=== PATIENT | female | born 1975 | race Caucasian/White ===

== ENCOUNTER 2016-11-15 12:58 | Emergency (ER) | payer MEDICAID ==
[2016-11-15] MEDS ORDERED: LIDOCAINE 2% VISCOUS SOLN 20 ML UDCUP PO ONE (14:13)
[2016-11-15] MEDS ORDERED: MAG HYDROX/AL HYDROX/SIMETH SUSP 30 ML UDCUP PO ONE (14:13)
[2016-11-15] MEDS ORDERED: METOCLOPRAMIDE HCL ORAL SOLN 10 MG/10 ML UDCUP PO ONE (14:13)
--- NOTE | 2016-11-15 14:15 | ER Document Report ---
ED Medical Screen (RME) - General Chief Complaint: Flank Pain Stated Complaint: BACK PAIN Time Seen by Provider: 11/15/16 14:09 Mode of Arrival: Ambulatory Information source: Patient Notes: This is a 41-year-old female with a history of presents for evaluation of abdominal and flank pain. She states for the last 2 or 3 weeks she has had upper abdominal discomfort which is been postprandial in nature. She states it is particularly exacerbated by sodas or coffee. For the past week she has also had bilateral flank pain. She states that she had seen her primary care physician who wanted to do an ultrasound of her kidneys but she has not been able to get this done yet. She denies any fevers or chills. She has had nausea but no vomiting. She had a normal bowel movement this morning. No dysuria. I have greeted and performed a rapid initial assessment of this patient. A comprehensive ED assessment and evaluation of the patient, analysis of test results and completion of the medical decision making process will be conducted by additional ED providers. TRAVEL OUTSIDE OF THE [place] IN LAST 30 DAYS: No - Related Data Allergies/Adverse Reactions: No Known Allergies Allergy (Verified 11/15/16 14:10) Past Medical History Renal/ Medical History: Denies: Hx Peritoneal Dialysis Physical Exam - Vital signs Vitals: Temp Pulse Resp BP Pulse Ox 98.5 F 94 18 129/83 H 99 11/15/16 13:12 11/15/16 13:12 11/15/16 13:12 11/15/16 13:12 11/15/16 13:12 - General General appearance: Appears well In distress: None - Respiratory Respiratory status: No respiratory distress Breath sounds: Normal. No: Rales, Rhonchi, Wheezing - Cardiovascular Rhythm: Regular Heart sounds: Normal auscultation, S1 appreciated, S2 appreciated Murmur: No Course - Vital Signs Vital signs: Temp Pulse Resp BP Pulse Ox 98.5 F 94 18 129/83 H 99 11/15/16 13:12 11/15/16 13:12 11/15/16 13:12 11/15/16 13:12 11/15/16 13:12
[2016-11-15 14:55] LABS: ABSOLUTE EOSINOPHILS # (AUTO) 0.1 10^3/uL (0.0-0.6); ABSOLUTE MONOCYTES (AUTO) 0.5 10^3/uL (0.1-1.4); ABSOLUTE NEUT (AUTO) 4.2 10^3/uL (1.7-8.2); BASOPHILS % (AUTO) 0.7 % (0-2); EOSINOPHILS % (AUTO) 1.7 % (0-6); HEMATOCRIT 39.3 % (36.0-47.0); HEMOGLOBIN 12.8 g/dL (12.0-15.5); HGB HCT DIFFERENCE -0.9; LYMPHOCYTES % (AUTO) 28.4 % (13-45); MEAN CORPUSCULAR HEMOGLOBIN 28.3 pg (27.0-33.4); MEAN CORPUSCULAR HGB CONC 32.4 g/dL (32.0-36.0); MEAN CORPUSCULAR VOLUME 87 fl (80-97); MONOCYTES % (AUTO) 7.9 % (3-13); RED BLOOD COUNT 4.51 10^6/uL (3.72-5.28); RED CELL DISTRIBUTION WIDTH 13.2 % (11.5-14.0); SEGMENTED NEUTROPHILS % (AUTO) 61.3 % (42-78); WHITE BLOOD COUNT 6.9 10^3/uL (4.0-10.5)
[2016-11-15 15:11] LABS: APPEARANCE,URINE SLIGHTLY-CLOUDY; BILIRUBIN,URINE NEGATIVE (NEGATIVE); GLUCOSE, URINE NEGATIVE (NEGATIVE); KETONES,URINE NEGATIVE (NEGATIVE); LEUKOCYTE ESTERASE,URINE NEGATIVE (NEGATIVE); NITRITE,URINE NEGATIVE (NEGATIVE); PROTEIN,URINE NEGATIVE (NEGATIVE); URINE SPECIFIC GRAVITY 1.011; UROBILINOGEN,URINE NEGATIVE mg/dL (<2.0)
[2016-11-15 15:16] LABS: ALANINE AMINOTRANSFERASE 29 U/L (9-52); ALBUMIN 4.9 g/dL (3.5-5.0); ALKALINE PHOSPHATASE 42 U/L (38-126); ANION GAP 12 (5-19); ASPARTATE AMINO TRANSFERASE 19 U/L (14-36); BILIRUBIN,DIRECT 0.3 mg/dL (0.0-0.4); BILIRUBIN,TOTAL 0.5 mg/dL (0.2-1.3); BLOOD UREA NITROGEN 14 mg/dL (7-20); CALCIUM 9.7 mg/dL (8.4-10.2); CARBON DIOXIDE 28 mmol/L (22-30); CHLORIDE 101 mmol/L (98-107); CREATININE RESULT 0.78 mg/dL (0.52-1.25); GLUCOSE 72 mg/dL (75-110); LIPASE 141.7 U/L (23-300); POTASSIUM 4.1 mmol/L (3.6-5.0); SODIUM 140.7 mmol/L (137-145); TOTAL PROTEIN 8.3 g/dL (6.3-8.2)
--- NOTE | 2016-11-15 16:53 | ER Document Report ---
ED GI/ - General Chief Complaint: Flank Pain Stated Complaint: BACK PAIN Time Seen by Provider: 11/15/16 14:09 Mode of Arrival: Ambulatory Notes: The patient is a 41-year-old female who presents with several weeks of epigastric abdominal pain and right upper quadrant abdominal pain, worse after eating. She has also had dysuria during this time. She saw her primary care physician and is scheduled for an outpatient ultrasound of her kidneys. She is currently not in any pain at this time. She denies fevers, nausea, vomiting, chest pain, shortness of breath, headache, hematuria, vaginal discharge or headache. TRAVEL OUTSIDE OF THE [place] IN LAST 30 DAYS: No - Related Data Allergies/Adverse Reactions: No Known Allergies Allergy (Verified 11/15/16 14:10) Past Medical History - General Information source: Patient - Social History Smoking Status: Never Smoker Chew tobacco use (# tins/day): No Frequency of alcohol use: None Drug Abuse: None Family History: Reviewed & Not Pertinent Patient has suicidal ideation: No Patient has homicidal ideation: No Renal/ Medical History: Denies: Hx Peritoneal Dialysis Review of Systems - Review of Systems Notes: REVIEW OF SYSTEMS: CONSTITUTIONAL: -fevers, -chills EENT: -eye pain, -difficulty swallowing, -nasal congestion CARDIOVASCULAR:-chest pain, -syncope. RESPIRATORY: -cough, -SOB GASTROINTESTINAL: +epigastric abdominal pain, -nausea, -vomiting, -diarrhea GENITOURINARY: +dysuria, -hematuria MUSCULOSKELETAL: +flank pain, -neck pain SKIN: -rash or skin lesions. HEMATOLOGIC: -easy bruising or bleeding. LYMPHATIC: -swollen, enlarged glands. NEUROLOGICAL: -altered mental status or loss of consciousness, -headache, - neurologic symptoms PSYCHIATRIC: -anxiety, -depression. ALL OTHER SYSTEMS REVIEWED AND NEGATIVE. Physical Exam - Vital signs Vitals: Temp Pulse Resp BP Pulse Ox 98.5 F 94 18 129/83 H 99 11/15/16 13:12 11/15/16 13:12 11/15/16 13:12 11/15/16 13:12 11/15/16 13:12 - Notes Notes: PHYSICAL EXAMINATION: GENERAL: Well-appearing, well-nourished and in no acute distress. HEAD: Atraumatic, normocephalic. EYES: Pupils equal round and reactive to light, extraocular movements intact, sclera anicteric, conjunctiva are normal. ENT: nares patent, oropharynx clear without exudates. Moist mucous membranes. NECK: Normal range of motion, supple without lymphadenopathy LUNGS: Breath sounds clear to auscultation bilaterally and equal. No wheezes rales or rhonchi. HEART: Regular rate and rhythm without murmurs ABDOMEN: Soft, mild epigastric tenderness, normoactive bowel sounds. No guarding, no rebound. No masses appreciated. EXTREMITIES: Normal range of motion, no pitting or edema. No cyanosis. NEUROLOGICAL: Cranial nerves grossly intact. Normal speech, normal gait. Normal sensory and motor exams. PSYCH: Normal mood, normal affect. SKIN: Warm, Dry, normal turgor, no rashes or lesions noted. Course - Re-evaluation Re-evalutation: Patient appears well. She has absolutely no abdominal tenderness. Her LFTs, UA other blood work are unremarkable. Instructed her to begin Prilosec for any gastritis symptoms and follow with her primary care physician. No evidence of cholecystitis at this time. - Vital Signs Vital signs: Temp Pulse Resp BP Pulse Ox 97.9 F 85 20 101/57 L 100 11/15/16 17:15 11/15/16 17:15 11/15/16 17:15 11/15/16 17:15 11/15/16 17:15 - Laboratory Result Diagrams: 11/15/16 14:35 11/15/16 14:35 Laboratory results interpreted by me: 11/15/16 14:35 Glucose 72 L Total Protein 8.3 H Discharge - Discharge Clinical Impression: Epigastric abdominal pain, Dysuria Condition: Good Disposition: HOME, SELF-CARE Additional Instructions: Begin the Nexium and AZO for your symptoms. Follow-up with your primary care physician this week to recheck your symptoms. ABDOMINAL PAIN: There are many causes of abdominal pain. Pain can mean a serious problem requiring surgery (such as appendicitis). It can also be an innocent problem that goes away on its own (such as a viral infection). Often, time must pass to determine the cause of pain. The physician does not feel that hospitalization is necessary, at present. Things may change within the next 24 hours. Call the doctor or come back for re- examination if any problems occur, such as: (1) Pain that becomes more severe, steady, or becomes concentrated in one specific area. Also, pain that is more severe with movement or coughing. (2) Vomiting that persists or becomes more frequent. (3) Blood in the vomitus, urine, or bowel movements. Blood in the stool may have a tarry or black appearance. (4) Shaking chills or fever greater than 100 degrees F. (5) The abdomen becomes more distended or swollen. (6) Bowel movements cease. (7) Failure to improve as expected. NORMAL EXAM AND WORKUP: At this time, your examination and workup show no significant abnormality. No significant abnormal physical findings are noted. All laboratory, EKG, and imaging (x-ray, CT scans, ultrasound) studies that were ordered show no significant abnormality. Although your examination and all studies that were ordered showed no significant abnormal finding, there are no examinations and no studies that are 100% accurate. There is always the possibility that some abnormality could exist and not be detected with physical examination or within the limits and capabilities of laboratory and other studies. You should return or follow up as you were instructed on your visit today for further evaluation if your symptoms do not resolve. FOLLOW-UP CARE: If you have been referred to a physician for follow-up care, call the physician s office for an appointment as you were instructed or within the next two days. If you experience worsening or a significant change in your symptoms, notify the physician immediately or return to the Emergency Department at any time for re-evaluation. Gastritis You have an inflammation of the stomach called gastritis. This commonly causes upper abdominal pain, nausea, and vomiting. In severe cases, bleeding of the stomach lining can occur. Gastritis can be caused by bacteria or viruses , alcohol, or stomach-irritating drugs. Begin with sips of clear liquids. Take increasing amounts of fluid over the first 24 hours. Then start small amounts of bland foods (such as dry toast , applesauce, mashed potato). Gradually resume your usual diet. You should take antacids every two hours until the pain has subsided. Acid -suppressing drugs may be prescribed as well. Avoid aspirin, caffeine, tobacco , and alcohol. If the abdominal pain worsens, or there is evidence of major bleeding in the stomach (such as black, tarry stool, bloody or black vomit, or lightheadedness), you should return immediately. Call the doctor if you aren't improved in 24 to 36 hours. Referrals: NATHANAEL GONZALEZ MD [Primary Care Provider] - Follow up as needed
[2016-11-15 17:16] VITALS: BP 101/57
== END 2016-11-15 17:15 | disposition home or self-care (01) ==
LOC: ER 12:58
DX: R10.13 Epigastric pain (principal); R30.0 Dysuria; M54.9 Dorsalgia, unspecified
CPT/HCPCS: 99284; 36415; 83690; 85025; 80053; 81001; J3490 ×3

== ENCOUNTER → 2018-09-11 | Outpatient (CLI) | payer MEDICAID ==
--- NOTE | 2018-09-11 15:04 | WOMENS IMAGING REPORT ---
EXAM DESCRIPTION: BILAT DIAGNOSTIC MAMMO W/CAD; U/S BREAST UNILATERAL, COMPL COMPLETED DATE/TIME: 09/11/2018 12:54 pm; 09/11/2018 1:42 pm REASON FOR STUDY: N63.20 UNSPECIFIED LUMP IN THE LEFT BREAST, UNSPECIFIED QUADRANT; LT BREAST N63.20 N63.20 UNSPECIFIED LUMP IN THE LEFT BREAST, UNSPECIFIED QUAD COMPARISON: 01/19/2016 mammograms and ultrasound TECHNIQUE: Standard craniocaudal and mediolateral oblique views of each breast recorded using digita l acquisition. Additional left breast 90 mediolateral view and cone compression in the CC and MLO orientations. Left breast ultrasound was also performed. LIMITATIONS: None. FINDINGS: RIGHT BREAST MASSES: No suspicious masses. CALCIFICATIONS: No new or suspicious calcifications. ARCHITECTURAL DISTORTION: None. DEVELOPING DENSITY: None. ASYMMETRY: None noted. OTHER: No other significant findings. LEFT BREAST MASSES: In the left breast 12 o'clock position, a low-density well-circumscribed 2.5 cm nodule is pre sent which was subsequently shown at ultrasound to represent a simple breast cyst CALCIFICATIONS: No new or suspicious calcifications. ARCHITECTURAL DISTORTION: None. DEVELOPING DENSITY: None. ASYMMETRY: None noted. OTHER: No other significant finding. Read with the assistance of CAD: .[facility] - R2 Cenova Version 1.3 .[facility] - R2 Cenova Version 2.1 .[facility] - R2 Cenova Version 2.4 .[facility] - R2 Cenova Version 2.4 .[facility] - R2 Awning Finisher Version 9.2 Left breast ultrasound: Ultrasound of the left breast was performed. A 2.5 x 2.5 x 1.7 cm simple cyst is present in the left breast 12 o'clock position, 4 cm from the nipple. IMPRESSION: No mammographic evidence for malignancy right breast No mammographic/sonographic evidence for malignancy left breast. Left breast palpable abnormality 12 o'clock position correlates with 2.5 cm simple cyst BREAST DENSITY: c. The breasts are heterogeneously dense, which may obscure small masses. BIRAD: 2 Benign findings. RECOMMENDATION: RECOMMENDED FOLLOW UP: Please continue yearly bilateral screening mammography/ tomos ynthesis in September 2019. SPECIFIC INTERVENTION/IMAGING/CONSULTATION RECOMMENDED:No additional intervention/ imaging/consultati on needed at this time. COMMUNICATION:The negative/benign results were communicated to the patient. COMMENT: The patient has been notified of the results by letter per MQSA requirements. Additional no tification policies are in place for contacting patient with suspicious or incomplete findings. Quality ID #225: The [employer] recommends an annual screening mammogram for women aged 40 years or over. This facility utilizes a reminder system to ensure that all patients receive reminder letters, and/or direct phone calls for appointments. This includes reminders for routine scr eening mammograms, diagnostic mammograms, or other Breast Imaging Interventions when appropriate. Th is patient will be placed in the appropriate reminder system. The [employer] (ACR) has developed recommendations for screening MRI of the breast s in certain patient populations, to be used in conjunction with mammography. Breast MRI surveillanc e may be appropriate for women with more than 20% lifetime risk of developing breast cancer as deter mined by genetic testing, significant family history of the disease, or history of mantle radiation f or Hodgkins Disease. ACR Practice Guidelines 2008. TECHNICAL DOCUMENTATION: FINDING NUMBER: (1) ASSESSMENT: (1) JOB ID: [id number] [employer]- All Rights Reserved Reading location - IP/workstation name: [email or web address]
--- NOTE | 2018-09-11 15:04 | WOMENS IMAGING REPORT ---
EXAM DESCRIPTION: BILAT DIAGNOSTIC MAMMO W/CAD; U/S BREAST UNILATERAL, COMPL COMPLETED DATE/TIME: 09/11/2018 12:54 pm; 09/11/2018 1:42 pm REASON FOR STUDY: N63.20 UNSPECIFIED LUMP IN THE LEFT BREAST, UNSPECIFIED QUADRANT; LT BREAST N63.20 N63.20 UNSPECIFIED LUMP IN THE LEFT BREAST, UNSPECIFIED QUAD COMPARISON: 01/19/2016 mammograms and ultrasound TECHNIQUE: Standard craniocaudal and mediolateral oblique views of each breast recorded using digita l acquisition. Additional left breast 90 mediolateral view and cone compression in the CC and MLO orientations. Left breast ultrasound was also performed. LIMITATIONS: None. FINDINGS: RIGHT BREAST MASSES: No suspicious masses. CALCIFICATIONS: No new or suspicious calcifications. ARCHITECTURAL DISTORTION: None. DEVELOPING DENSITY: None. ASYMMETRY: None noted. OTHER: No other significant findings. LEFT BREAST MASSES: In the left breast 12 o'clock position, a low-density well-circumscribed 2.5 cm nodule is pre sent which was subsequently shown at ultrasound to represent a simple breast cyst CALCIFICATIONS: No new or suspicious calcifications. ARCHITECTURAL DISTORTION: None. DEVELOPING DENSITY: None. ASYMMETRY: None noted. OTHER: No other significant finding. Read with the assistance of CAD: .[facility] - R2 Cenova Version 1.3 .[facility] - R2 Cenova Version 2.1 .[facility] - R2 Cenova Version 2.4 .[facility] - R2 Cenova Version 2.4 .[facility] - R2 Agricultural Inspector Version 9.2 Left breast ultrasound: Ultrasound of the left breast was performed. A 2.5 x 2.5 x 1.7 cm simple cyst is present in the left breast 12 o'clock position, 4 cm from the nipple. IMPRESSION: No mammographic evidence for malignancy right breast No mammographic/sonographic evidence for malignancy left breast. Left breast palpable abnormality 12 o'clock position correlates with 2.5 cm simple cyst BREAST DENSITY: c. The breasts are heterogeneously dense, which may obscure small masses. BIRAD: 2 Benign findings. RECOMMENDATION: RECOMMENDED FOLLOW UP: Please continue yearly bilateral screening mammography/ tomos ynthesis in September 2019. SPECIFIC INTERVENTION/IMAGING/CONSULTATION RECOMMENDED:No additional intervention/ imaging/consultati on needed at this time. COMMUNICATION:The negative/benign results were communicated to the patient. COMMENT: The patient has been notified of the results by letter per MQSA requirements. Additional no tification policies are in place for contacting patient with suspicious or incomplete findings. Quality ID #225: The [employer] recommends an annual screening mammogram for women aged 40 years or over. This facility utilizes a reminder system to ensure that all patients receive reminder letters, and/or direct phone calls for appointments. This includes reminders for routine scr eening mammograms, diagnostic mammograms, or other Breast Imaging Interventions when appropriate. Th is patient will be placed in the appropriate reminder system. The [employer] (ACR) has developed recommendations for screening MRI of the breast s in certain patient populations, to be used in conjunction with mammography. Breast MRI surveillanc e may be appropriate for women with more than 20% lifetime risk of developing breast cancer as deter mined by genetic testing, significant family history of the disease, or history of mantle radiation f or Hodgkins Disease. ACR Practice Guidelines 2008. TECHNICAL DOCUMENTATION: FINDING NUMBER: (1) ASSESSMENT: (1) JOB ID: [id number] [employer]- All Rights Reserved Reading location - IP/workstation name: [email or web address]
== END ==
LOC: WI 12:47
PROVIDERS: ATTEND Obstetrics & Gynecology
DX: N60.02 Solitary cyst of left breast (principal)
CPT/HCPCS: 76641; 77066

== ENCOUNTER 2019-04-05 11:16 | Emergency (ER) | payer SELFPAY ==
--- NOTE | 2019-04-05 11:53 | ER Document Report ---
ED Medical Screen (RME) - General Chief Complaint: Flank Pain Stated Complaint: FLANK PAIN Time Seen by Provider: 04/05/19 11:50 Primary Care Provider: NATHANAEL GONZALEZ MD [Primary Care Provider] - Follow up as needed Mode of Arrival: Ambulatory Information source: Patient Notes: 44-year-old female presents to ED for bilateral flank pain. She states is been for about 3 months. She states she has been to her doctor he did blood work and urine said there was no infection nothing with the urine. She is told the doctor that when she drinks coffee the kidneys hurt he told her to stop drinking coffee but has not done a x-ray or ultrasound. She stated she really would like a ultrasound of her kidneys. Patient states she has been diagnosed with gastritis but otherwise she is healthy. He is a former smoker quit a couple months ago. She states she used to drink beer but quit drinking beer about 3 weeks ago. And denies any illicit drugs. Patient states she also has been dizzy for for the last week. I have greeted and performed a rapid initial assessment of this patient. A comprehensive ED assessment and evaluation of the patient, analysis of test resu lts and completion of medical decision making process will be conducted by an additional ED providers. TRAVEL OUTSIDE OF THE [place] IN LAST 30 DAYS: No - Related Data Allergies/Adverse Reactions: No Known Allergies Allergy (Verified 11/15/16 14:10) Past Medical History Renal/ Medical History: Denies: Hx Peritoneal Dialysis Physical Exam - Vital signs Vitals: Temp Pulse Resp BP Pulse Ox 98.1 F 89 18 123/79 100 04/05/19 11:20 04/05/19 11:20 04/05/19 11:20 04/05/19 11:20 04/05/19 11:20 Course - Vital Signs Vital signs: Temp Pulse Resp BP Pulse Ox 98.1 F 89 18 123/79 100 04/05/19 11:20 04/05/19 11:20 04/05/19 11:20 04/05/19 11:20 04/05/19 11:20 Doctor's Discharge - Discharge Referrals: NATHANAEL GONZALEZ MD [Primary Care Provider] - Follow up as needed
[2019-04-05 12:26] LABS: ABSOLUTE EOSINOPHILS # (AUTO) 0.1 10^3/uL (0.0-0.6); ABSOLUTE LYMPHOCYTES (AUTO) 1.8 10^3/uL (0.5-4.7); ABSOLUTE MONOCYTES (AUTO) 0.5 10^3/uL (0.1-1.4); ABSOLUTE NEUT (AUTO) 3.2 10^3/uL (1.7-8.2); BASOPHILS % (AUTO) 0.6 % (0-2); EOSINOPHILS % (AUTO) 1.6 % (0-6); HEMATOCRIT 38.9 % (36.0-47.0); HEMOGLOBIN 13.1 g/dL (12.0-15.5); LYMPHOCYTES % (AUTO) 32.6 % (13-45); MEAN CORPUSCULAR HEMOGLOBIN 28.6 pg (27.0-33.4); MEAN CORPUSCULAR HGB CONC 33.8 g/dL (32.0-36.0); MEAN CORPUSCULAR VOLUME 85 fl (80-97); MONOCYTES % (AUTO) 9.2 % (3-13); PLATELET COUNT 271 10^3/uL (150-450); RED BLOOD COUNT 4.59 10^6/uL (3.72-5.28); RED CELL DISTRIBUTION WIDTH 12.9 % (11.5-14.0); TOTAL CELLS COUNTED % (AUTO) 100 %; WHITE BLOOD COUNT 5.7 10^3/uL (4.0-10.5)
[2019-04-05 12:44] LABS: ALKALINE PHOSPHATASE 47 U/L (38-126); ANION GAP 9 (5-19); ASPARTATE AMINO TRANSFERASE 19 U/L (14-36); BILIRUBIN,DIRECT 0.1 mg/dL (0.0-0.4); BILIRUBIN,TOTAL 0.5 mg/dL (0.2-1.3); BLOOD UREA NITROGEN 16 mg/dL (7-20); CALCIUM 9.8 mg/dL (8.4-10.2); CARBON DIOXIDE 29 mmol/L (22-30); CHLORIDE 102 mmol/L (98-107); GLUCOSE 86 mg/dL (75-110); POTASSIUM 3.8 mmol/L (3.6-5.0); TOTAL PROTEIN 8.5 g/dL (6.3-8.2)
--- NOTE | 2019-04-05 13:12 | RADIOLOGY REPORT (SQ) ---
EXAM DESCRIPTION: U/S RETROPERITON (RENAL/AORTA) COMPLETED DATE/TIME: 04/05/2019 12:32 pm REASON FOR STUDY: Bilateral flank pain COMPARISON: None. TECHNIQUE: Dynamic and static grayscale images acquired of the kidneys and bladder and recorded on P ACS. Additional selected color Doppler and spectral images recorded. LIMITATIONS: None. FINDINGS: RIGHT KIDNEY: Normal size. Normal echogenicity. No solid or suspicious masses. No hydronep hrosis. No calcifications. LEFT KIDNEY: Normal size. Normal echogenicity. No solid or suspicious masses. No hydronephrosis. No calcifications. BLADDER: No masses. OTHER FINDINGS: No other significant finding. IMPRESSION: NORMAL RENAL AND BLADDER ULTRASOUND. TECHNICAL DOCUMENTATION: JOB ID: [id number] [facility]- All Rights Reserved Reading location - IP/workstation name: [email or web address]
[2019-04-05 13:29] LABS: APPEARANCE,URINE CLEAR; BILIRUBIN,URINE NEGATIVE (NEGATIVE); COLOR,URINE STRAW; GLUCOSE, URINE NEGATIVE (NEGATIVE); KETONES,URINE NEGATIVE (NEGATIVE); PROTEIN,URINE NEGATIVE (NEGATIVE); URINE SPECIFIC GRAVITY 1.012; UROBILINOGEN,URINE NEGATIVE mg/dL (<2.0)
--- NOTE | 2019-04-05 14:28 | ER Document Report ---
ED GI/ - General Chief Complaint: Flank Pain Stated Complaint: FLANK PAIN Time Seen by Provider: 04/05/19 11:50 Primary Care Provider: NATHANAEL GONZALEZ MD [Primary Care Provider] - Follow up as needed Mode of Arrival: Ambulatory Information source: Patient Notes: Ms. Grady is a 44 yo F w/ PMH gastritis presenting to the ED for ongoing abdominal pain that radiates bilaterally posteriorly to bilateral flanks. Patient states that she had this pain for approximately 3 to 4 months. It is sharp, intermittent in nature and radiates posteriorly. She believes it is her bilateral kidneys causing her pain. She states that she had blood work and urine performed with her primary care doctor. She did not have any imaging performed. Patient also adds that she stopped taking her Zantac approximately 1 year ago. She feels that the pain is worse with eating various things such as fatty foods as well as caffeine products such as soda or chocolate. Her doctor told her to stop caffeine intake. She states she is somewhat chronically constipated and is on daily MiraLAX for it. She denied any dark, black or tarry stools. She states her last BM was yesterday however it was small in nature. Patient denies any urinary frequency or dysuria. No fevers or chills, chest pain, shortness of breath. She denies any vomiting or diarrhea however she endorses intermittent nausea. TRAVEL OUTSIDE OF THE [place] IN LAST 30 DAYS: No - HPI Patient complains to provider of: Abdominal pain, Flank pain, Other - Co nstipation. No: Dysuria, Urinary retention, Vaginal bleeding, Vaginal discharge, Vomiting - Related Data Allergies/Adverse Reactions: No Known Allergies Allergy (Verified 11/15/16 14:10) Home Medications: miralax Past Medical History - General Information source: Patient - Social History Smoking Status: Former Smoker Frequency of alcohol use: Social Family History: Reviewed & Not Pertinent Patient has suicidal ideation: No Patient has homicidal ideation: No - Past Medical History Cardiac Medical History: Reports: Hx Hypercholesterolemia Renal/ Medical History: Denies: Hx Peritoneal Dialysis Past Surgical History: Reports: Hx Hysterectomy Review of Systems - Review of Systems Constitutional: See HPI EENT: No symptoms reported Cardiovascular: No symptoms reported Respiratory: No symptoms reported Gastrointestinal: See HPI Genitourinary: No symptoms reported Female Genitourinary: No symptoms reported Musculoskeletal: No symptoms reported Skin: No symptoms reported Hematologic/Lymphatic: No symptoms reported Neurological/Psychological: No symptoms reported Physical Exam - Vital signs Vitals: Temp Pulse Resp BP Pulse Ox 98.1 F 89 18 123/79 100 04/05/19 11:20 04/05/19 11:20 04/05/19 11:20 04/05/19 11:20 04/05/19 11:20 Interpretation: Normal - General General appearance: Appears well, Alert - HEENT Head: Normocephalic, Atraumatic Eyes: Normal Pupils: PERRL - Respiratory Respiratory status: No respiratory distress Chest status: Nontender Breath sounds: Normal Chest palpation: Normal - Cardiovascular Rhythm: Regular Heart sounds: Normal auscultation Murmur: No - Abdominal Inspection: Normal Distension: No distension Bowel sounds: Normal Tenderness: Nontender Organomegaly: No organomegaly Notes: No CVA tenderness to palpation bilaterally. No rebound or guarding. Abdomen soft and unable to re-create the pain with palpation of bilateral upper abdominal quadrants. - Back Back: Normal, Nontender - Extremities General upper extremity: Normal inspection, Nontender, Normal color, Normal ROM, Normal temperature General lower extremity: Normal inspection, Nontender, Normal color, Normal ROM, Normal temperature, Normal weight bearing. No: Janie's sign - Neurological Neuro grossly intact: Yes Cognition: Normal Orientation: AAOx4 Tomer Coma Scale Eye Opening: Spontaneous [place] Coma Scale Verbal: Oriented Tomer Coma Scale Motor: Obeys Commands Tomer Coma Scale Total: 15 Speech: Normal Motor strength normal: LUE, RUE, LLE, RLE Sensory: Normal - Psychological Associated symptoms: Normal affect, Normal mood - Skin Skin Temperature: Warm Skin Moisture: Dry Skin Color: Normal Course - Re-evaluation Re-evalutation: Patient is generally well-appearing and nontoxic. Initial vitals within normal limits. Unable to re-create pain here on examination. Differential diagnosis includes UTI, gastritis, GERD, constipation, UTI. 04/05/19 14:53 Presentation of generalized, intermittent abdominal pain. Abdominal exam is benign without any focal tenderness. Vitals are normal at the time of arrival. Laboratories are unremarkable without evidence of cystitis or leukocytosis. Patient is overall very well in appearance. Based on clinical history and examination I do not suspect an acute appendicitis, tubo-ovarian abscess, related pathology, pelvic inflammatory disease, mesenteric ischemia, or pyelonephritis. Pelvic exam was not performed as the patient's pain is primarily in bilateral upper quadrants as well as bilateral upper flanks. No vaginal discharge, or pelvic complaints to necessitate pelvic examination. 04/05/19 14:58 Patient instructed to reinitiate her Zantac that she had stopped without discussion of the physician. Also recommended she use senna plus to help relieve her chronic constipation. Abdomen is nonfocal or peritoneal to suggest obstructive process. The patient did have a bowel movement yesterday and is actively passing stool as well as not having any vomiting to suggest obstructive process. Will discharge home with return precautions and followup recommenda tions. - Vital Signs Vital signs: Temp Pulse Resp BP Pulse Ox 99.2 F 79 16 117/79 97 04/05/19 14:45 04/05/19 14:45 04/05/19 14:45 04/05/19 14:48 04/05/19 14:45 - Laboratory Result Diagrams: 04/05/19 12:03 04/05/19 12:03 Laboratory results interpreted by me: 04/05/19 12:03 Total Protein 8.5 H Discharge - Discharge Clinical Impression: Abdominal pain, Constipation Condition: Good Disposition: HOME, SELF-CARE Instructions: Abdominal Pain ([facility]), Constipation ([facility]), Gastritis ([facility]), Low- Fat Diet ([facility]) Additional Instructions: You have been seen in the Emergency Department (ED) for abdominal pain. Your evaluation did not identify a clear cause of your symptoms but was generally reassuring. Please follow up with your doctor as soon as possible regarding today's emergent visit and the symptoms that are bothering you. Return to the ED if your abdominal pain worsens or fails to improve, you develop bloody vomiting, bloody diarrhea, you are unable to tolerate fluids due to vomiting, fever greater than 101, or other symptoms that concern you. I would recommend that you restart your Zantac medication and take it regularly. I would also recommend that you use senna plus to help with your chronic constipation. Take note if your pain is worse with foods high in fat content versus low-fat foods. This may be indicative of gallbladder disease and I would recommend you follow-up with your primary care doctor and get a referral for a surgeon for elective cholecystectomy. Referrals: NATHANAEL GONZALEZ MD [Primary Care Provider] - Follow up as needed
[2019-04-05 14:49] VITALS: BP 117/79
== END 2019-04-05 14:48 | disposition home or self-care (01) ==
LOC: ER 11:16
DX: K59.00 Constipation, unspecified (principal); Z79.899 Other long term (current) drug therapy; R10.84 Generalized abdominal pain; T47.0X6A Underdosing of histamine H2-receptor blockers, initial encounter; Z91.128 Patient's intentional underdosing of medication regimen for other reason; Z91.14 Patient's other noncompliance with medication regimen; Z87.19 Personal history of other diseases of the digestive system; Z87.891 Personal history of nicotine dependence; Z90.710 Acquired absence of both cervix and uterus
CPT/HCPCS: 36415; 76770; 80053; 81001; 83690; 85025; 99284

== ENCOUNTER 2020-02-18 21:16 | Emergency (ER) | payer SELFPAY ==
--- NOTE | 2020-02-18 23:27 | ER Document Report ---
ED Medical Screen (RME) - General Chief Complaint: ETOH Abuse Stated Complaint: REPORTS HIGH BLOOD PRESSURE Time Seen by Provider: 02/18/20 23:01 Primary Care Provider: NATHANAEL GONZALEZ MD [Primary Care Provider] - Follow up as needed Notes: Patient is a 45-year-old female presents emergency department with wanting help with drinking her alcohol. Patient states that she has been drinking heavily for the past 6 to 8 months. She drinks 5-6 beers a day. States that she has a headache, generalized weakness, and some dizziness. Exam: Alert and oriented. I have greeted and performed a rapid initial assessment of this patient. A comprehensive ED assessment and evaluation of the patient, analysis of test results and completion of medical decision making process will be conducted by an additional ED providers. TRAVEL OUTSIDE OF THE [place] IN LAST 30 DAYS: No - Related Data Allergies/Adverse Reactions: No Known Allergies Allergy (Verified 11/15/16 14:10) Home Medications: mvi,potassium 99 mg, magnesium 250 mg, calcium, vit d, collegan Past Medical History - Social History Frequency of alcohol use: daily 5-6 beers - Past Medical History Cardiac Medical History: Reports: Hx Hypercholesterolemia Renal/ Medical History: Denies: Hx Peritoneal Dialysis Past Surgical History: Reports: Hx Hysterectomy Physical Exam - Vital signs Vitals: Temp Pulse Resp BP Pulse Ox 98.6 F 86 17 137/85 H 99 02/18/20 21:30 02/18/20 21:30 02/18/20 21:30 02/18/20 21:30 02/18/20 21:30 Course - Vital Signs Vital signs: Temp Pulse Resp BP Pulse Ox 98.6 F 86 17 137/85 H 99 02/18/20 21:30 02/18/20 21:30 02/18/20 21:30 02/18/20 21:30 02/18/20 21:30 Doctor's Discharge - Discharge Referrals: NATHANAEL GONZALEZ MD [Primary Care Provider] - Follow up as needed
[2020-02-18 23:37] LABS: ABSOLUTE BASOPHILS # (AUTO) 0.1 10^3/uL (0.0-0.2); ABSOLUTE EOSINOPHILS # (AUTO) 0.1 10^3/uL (0.0-0.6); ABSOLUTE MONOCYTES (AUTO) 0.6 10^3/uL (0.1-1.4); BASOPHILS % (AUTO) 1.2 % (0-2); HEMATOCRIT 37.9 % (36.0-47.0); LYMPHOCYTES % (AUTO) 23.1 % (13-45); MEAN CORPUSCULAR HEMOGLOBIN 29.5 pg (27.0-33.4); MEAN CORPUSCULAR HGB CONC 34.3 g/dL (32.0-36.0); MEAN CORPUSCULAR VOLUME 86 fl (80-97); MONOCYTES % (AUTO) 6.5 % (3-13); PLATELET COUNT 277 10^3/uL (150-450); RED CELL DISTRIBUTION WIDTH 12.8 % (11.5-14.0); SEGMENTED NEUTROPHILS % (AUTO) 68.2 % (42-78); TOTAL CELLS COUNTED % (AUTO) 100 %; WHITE BLOOD COUNT 8.8 10^3/uL (4.0-10.5)
[2020-02-18 23:39] LABS: APPEARANCE,URINE CLEAR; BILIRUBIN,URINE NEGATIVE (NEGATIVE); COLOR,URINE STRAW; GLUCOSE, URINE NEGATIVE (NEGATIVE); KETONES,URINE NEGATIVE (NEGATIVE); LEUKOCYTE ESTERASE,URINE NEGATIVE (NEGATIVE); NITRITE,URINE NEGATIVE (NEGATIVE); PROTEIN,URINE NEGATIVE (NEGATIVE); URINE SPECIFIC GRAVITY 1.005; UROBILINOGEN,URINE NEGATIVE mg/dL (<2.0)
[2020-02-19 00:02] LABS: ALBUMIN 5.1 g/dL (3.5-5.0); ALKALINE PHOSPHATASE 59 U/L (38-126); ANION GAP 10 (5-19); ASPARTATE AMINO TRANSFERASE 24 U/L (14-36); BILIRUBIN,DIRECT 0.2 mg/dL (0.0-0.4); BILIRUBIN,TOTAL 0.5 mg/dL (0.2-1.3); BLOOD UREA NITROGEN 11 mg/dL (7-20); CALCIUM 9.9 mg/dL (8.4-10.2); CARBON DIOXIDE 29 mmol/L (22-30); CHLORIDE 99 mmol/L (98-107); GLUCOSE 98 mg/dL (75-110); TOTAL PROTEIN 8.2 g/dL (6.3-8.2)
[2020-02-19 00:03] LABS: ALCOHOL < 10 mg/dL (NONE DETECTED)
[2020-02-19 01:49] LABS: URINE AMPHETAMINES SCREEN NEGATIVE; URINE BARBITURATES SCREEN NEGATIVE; URINE BENZODIAZEPINES SCREEN NEGATIVE; URINE COCAINE SCREEN NEGATIVE; URINE MARIJUANA (THC) SCREEN NEGATIVE; URINE METHADONE SCREEN NEGATIVE; URINE PHENCYCLIDINE SCREEN NEGATIVE
--- NOTE | 2020-02-19 04:08 | ER Document Report ---
ED General - General Chief Complaint: ETOH Abuse Stated Complaint: REPORTS HIGH BLOOD PRESSURE Time Seen by Provider: 02/18/20 23:01 Primary Care Provider: NATHANAEL GONZALEZ MD [Primary Care Provider] - Follow up as needed Notes: 45-year-old female history of alcohol abuse presents with several vague chronic symptoms that she wanted to get checked out. Patient says that she has been feeling generally weak and lightheaded for the past several months with intermittent frontal headache for the past 1 month and intermittent bone pain in her bilateral lower legs diffusely over the last several months. Patient says that she was drinking heavily every day and ignoring her health and now has stopped and wanted to address these issues. Patient says that she has been taking magnesium and potassium supplements but that they are not helping with her symptoms. Patient denies any chest pain, shortness of breath, lower e xtremity edema, recent illness, fever, vomiting, change in vision/speech/gait, vertigo, syncope, weakness or numbness, unexplained weight loss, drug use, bleeding diatheses, anticoagulation, trauma TRAVEL OUTSIDE OF THE [place] IN LAST 30 DAYS: No - Related Data Allergies/Adverse Reactions: No Known Allergies Allergy (Verified 11/15/16 14:10) Home Medications: mvi,potassium 99 mg, magnesium 250 mg, calcium, vit d, collegan Past Medical History - General Information source: Patient - Social History Smoking Status: Current Some Day Smoker Frequency of alcohol use: daily 5-6 beers Drug Abuse: None Family History: Reviewed & Not Pertinent - Past Medical History Cardiac Medical History: Reports: Hx Hypercholesterolemia Renal/ Medical History: Denies: Hx Peritoneal Dialysis Past Surgical History: Reports: Hx Hysterectomy Review of Systems - Review of Systems Constitutional: denies: Chills, Fever EENT: denies: Sinus pressure, Sinus discharge Cardiovascular: denies: Chest pain, Palpitations Respiratory: denies: Cough, Sputum Gastrointestinal: denies: Abdomen distended, Abdominal pain Genitourinary: denies: Burning, Dysuria Female Genitourinary: denies: Vaginal bleeding, Vaginal odor Musculoskeletal: denies: Back pain, Gout Skin: denies: Change in color, Change in hair/nails Hematologic/Lymphatic: denies: Anemia, Blood clots Neurological/Psychological: denies: Dementia, Depression Physical Exam - Vital signs Vitals: Temp Pulse Resp BP Pulse Ox 98.6 F 86 17 137/85 H 99 02/18/20 21:30 02/18/20 21:30 02/18/20 21:30 02/18/20 21:30 02/18/20 21:30 - General General appearance: Appears well, Alert - HEENT Eyes: Normal Conjunctiva: Normal - Respiratory Respiratory status: No respiratory distress Chest status: Nontender - Cardiovascular Rhythm: Regular Heart sounds: Normal auscultation - Abdominal Inspection: Normal Distension: No distension - Back Back: Normal, Nontender - Extremities General upper extremity: Normal inspection, Nontender. No: Edema General lower extremity: Normal inspection, Nontender. No: Edema - Neurological Neuro grossly intact: Yes Cognition: Normal Orientation: AAOx4 Tomer Coma Scale Eye Opening: Spontaneous [place] Coma Scale Verbal: Oriented [place] Coma Scale Motor: Obeys Commands [place] Coma Scale Total: 15 Speech: Normal Cranial nerves: Normal Cerebellar coordination: Normal Motor strength normal: LUE, RUE, LLE, RLE Sensory: Normal - Psychological Associated symptoms: Normal affect, Normal mood - Skin Skin Temperature: Warm Skin Moisture: Dry Course - Re-evaluation Re-evalutation: 02/19/20 04:11 Weeks symptoms with chronic duration, I obtained electrolytes this patient's been taking supplementation with high magnesium level which could be contributing to patient's symptoms. I advised the patient to stop taking magnesium supplements and to normal balanced diet. I ordered CT head for now chronic headache but patient declines, this is reasonable to be followed up in outpatient office. Obtain EKG and troponin for vague weakness patient with a known history of as no primary care has been followed and these were normal. Patient ready for discharge with primary care follow-up and has been given extensive return to ED precautions which she demonstrated understanding of. - Vital Signs Vital signs: Temp Pulse Resp BP Pulse Ox 97.9 F 79 14 108/87 H 99 02/19/20 04:19 02/19/20 04:19 02/19/20 04:19 02/19/20 04:19 02/19/20 04:19 - Laboratory Result Diagrams: 02/18/20 23:15 02/18/20 23:15 Laboratory results interpreted by me: 02/18/20 02/18/20 23:15 23:15 Magnesium 2.6 H Albumin 5.1 H Discharge - Discharge Clinical Impression: Lightheadedness Headache Qualifiers: Headache type: unspecified Headache chronicity pattern: episodic headache Intractability: not intractable Qualified Code(s): R51 - Headache Condition: Stable Disposition: HOME, SELF-CARE Additional Instructions: Headache Most headaches are due to emotional stress, with resultant muscle tension (tension headache). Occasionally, headaches are secondary to changes in the blood vessels of the scalp (vascular headache and migraine headache). Sometimes, a headache is the first symptom of another developing illness, such as a viral infection. You have no evidence of stroke, bleeding, meningitis, or other serious cause of your headache. The treatment of headaches varies with the severity and cause of the pain. Not all headaches need pain shots. In fact, there is evidence that using narcotics for headaches may make them worse in the long run. The physician will determine the therapy that's in your best interest. If you develop a fever, if the headache is different from any you've previously experienced, or if the headache progressively worsens, then call your physician at once or go to the emergency room. Start taking magnesium supplements, eat regular balanced diet, follow-up with primary doctor at [facility] within 1 week. Return to ED i mmediately if you have trouble breathing, fainting, chest pain, fever 100.4 or higher, worsening headache, difficulty walking/talking/CN, weakness or numbness, or any other worsening or alarming symptoms. Referrals: NATHANAEL GONZALEZ MD [Primary Care Provider] - Follow up as needed
[2020-02-19 04:22] VITALS: BP 108/87
--- NOTE | 2020-02-19 19:12 | EKG REPORT ---
SEVERITY:- NORMAL ECG - SINUS RHYTHM : Confirmed by: Elliot Haro 19-Feb-2020 19:11:42
== END 2020-02-19 04:22 | disposition home or self-care (01) ==
LOC: ER 21:16
DX: R51 Headache (principal); R42 Dizziness and giddiness; R53.1 Weakness; M89.8X6 Other specified disorders of bone, lower leg; F17.200 Nicotine dependence, unspecified, uncomplicated; Z79.899 Other long term (current) drug therapy
CPT/HCPCS: 36415; 80053; 80307; 81001; 83690; 83735; 84443; 84484; 85025; 93005; 93010; 99285